=== PATIENT | female | born 1980 | race Caucasian/White ===

== ENCOUNTER → 2023-07-10 14:02 | Outpatient (REF) | payer BC, SELFPAY | LOC: HWWDC 14:02 | PROVIDERS: ATTENDING PHYSICIAN Obstetrics & Gynecology | DX: Z12.31 Encounter for screening mammogram for malignant neoplasm of breast (principal) | CPT/HCPCS: 77063; 77067 ==

== ENCOUNTER → 2024-07-24 10:31 | Outpatient (REF) | payer BC, SELFPAY | LOC: HWWDC 10:31 | PROVIDERS: ATTENDING PHYSICIAN Obstetrics & Gynecology; FAMILY PHYSICIAN Family Medicine | DX: Z12.31 Encounter for screening mammogram for malignant neoplasm of breast (principal) | CPT/HCPCS: 77063; 77067 ==